=== PATIENT | male | born 1955 | race Caucasian/White ===

== ENCOUNTER 2021-04-30 06:30 | Day surgery (SDC) | payer BC ==
[~2021-04-30 06:30] MED LIST: Lactated Ringers 1,000 ML IV SCH
--- NOTE | 2021-04-30 07:04 | PCM.PREANE ---
Preanesthetic Assessment - Procedure Proposed Procedure: Colonoscopy - Anesthesia/Transfusion/Family Hx Anesthesia History: Prior Anesthesia Without Reaction Other Type of Anesthesia Reaction Comment: nausea x1 after shoulder surgery Family History of Anesthesia Reaction: No Transfusion History: No Prior Transfusion(s) - Review of Systems General: No Symptoms Pulmonary: No Symptoms Cardiovascular: No Symptoms Gastrointestinal: No Symptoms Neurological: No Symptoms Other: Reports: None - Physical Assessment NPO Status Date: 04/30/21 NPO Status Time: 08:00 Vital Signs: Last Vital Signs Temp 97.2 F 04/30/21 06:48 Pulse 57 L 04/30/21 06:48 Resp 16 04/30/21 06:48 BP 116/70 04/30/21 06:48 Pulse Ox 98 04/30/21 06:48 Height: 5 ft 10 in Weight: 69.4 kg ASA Class: 1 Mental Status: Alert & Oriented x3 Airway Class: Mallampati = 2 Dentition: Reports: Normal Dentition Thyro-Mental Finger Breadths: 3 Mouth Opening Finger Breadths: 3 ROM/Head Extension: Full Lungs: Clear to Auscultation, Normal Respiratory Effort Cardiovascular: Regular Rate, Regular Rhythm - Allergies Allergies/Adverse Reactions: Allergies Allergy/AdvReac Type Severity Reaction Status Date / Time Penicillins Allergy Hives Verified 04/24/21 08:21 - Acknowledgements Anesthesia Type Planned: General Anesthesia Pt an Appropriate Candidate for the Planned Anesthesia: Yes Alternatives and Risks of Anesthesia Discussed w Pt/Guardian: Yes Pt/Guardian Understands and Agrees with Anesthesia Plan: Yes PreAnesthesia Questionnaire HEENT History: Reports: None Cardiovascular History: Reports: None Respiratory History: Reports: None Gastrointestinal History: Reports: Other (See Below) Other Gastrointestinal History: occasional heartburn Genitourinary History: Reports: None Neurological History: Reports: None Psychiatric History: Reports: None Endocrine/Metabolic History: Reports: None Hematologic History: Reports: None Immunologic History: Reports: None Oncologic (Cancer) History: Reports: None Dermatologic History: Reports: None - Past Surgical History Head Surgeries/Procedures: Reports: None HEENT Surgical History: Reports: LASIK, Tonsillectomy Cardiovascular Surgical History: Reports: None Respiratory Surgical History: Reports: None GI Surgical History: Reports: Cholecystectomy, Colonoscopy, EGD Male Surgical History: Reports: Vasectomy Endocrine Surgical History: Reports: None Neurological Surgical History: Reports: None Musculoskeletal Surgical History: Reports: Arthroscopic Knee, Shoulder Surgery Other Musculoskeletal Surgeries/Procedures:: chris shoulder arthroscopy, knee surgery, bicep tendon repair Oncologic Surgical History: Reports: None Dermatological Surgical History: Reports: None - SUBSTANCE USE Tobacco Use Status *Q: Never Tobacco User - HOME MEDS Home Medications: Home Meds Glucosam/Chond/Collagen/Hyalur [Glucosamine Chondroitin] 1 tab PO DAILY 04/24/21 [History] - CURRENT (IN HOUSE) MEDS Current Meds: Current Medications Lactated Ringer's (Ringers, Lactated) 1,000 mls @ 125 mls/hr IV ASDIRECTED COLLINS
[2021-04-30] MEDS ORDERED: propofoL 50 ML ONE (07:16)
[2021-04-30] MEDS ORDERED: fentaNYL 100 MCG/2 ML SDV ONE (07:21)
[2021-04-30] MEDS ORDERED: ePHEDrine 50 MG/ML SDV ONE (08:07)
[2021-04-30] MEDS ORDERED: Sodium Chloride 0.9% 20 ML ONE (08:07)
--- NOTE | 2021-04-30 08:16 | PCM.OPNOTE ---
- General Post-Op/Procedure Note Date of Surgery/Procedure: 04/30/21 Operative Procedure(s): colonoscopy Findings: normal colon dictation number [id number] Pre Op Diagnosis: family history of colon cancer Post-Op Diagnosis: normal colon Primary Surgeon: Magdy Hermosillo Pathology: none Complications: None Condition: Good
--- NOTE | 2021-04-30 08:28 | PCM.POSTAN ---
POST ANESTHESIA ASSESSMENT - MENTAL STATUS Mental Status: Alert, Oriented - VITAL SIGNS Vital Signs: Last Vital Signs Temp 97.2 F 04/30/21 06:48 Pulse 57 L 04/30/21 06:48 Resp 16 04/30/21 06:48 BP 116/70 04/30/21 06:48 Pulse Ox 98 04/30/21 06:48 - RESPIRATORY Respiratory Status: Respiratory Rate WNL, Airway Patent, O2 Saturation Stable - CARDIOVASCULAR CV Status: Pulse Rate WNL, Blood Pressure Stable - GASTROINTESTINAL GI Status: No Symptoms - PAIN Pain Score: 0 - POST OP HYDRATION Hydration Status: Adequate & Stable
--- NOTE | 2021-04-30 08:34 | PCM48HPAN ---
Post Anesthesia Note - EVALUATION WITHIN 48HRS OF ANESTHETIC Vital Signs in Normal Range: Yes Patient Participated in Evaluation: Yes Respiratory Function Stable: Yes Airway Patent: Yes Cardiovascular Function Stable: Yes Hydration Status Stable: Yes Pain Control Satisfactory: Yes Nausea and Vomiting Control Satisfactory: Yes Mental Status Recovered: Yes Vital Signs: Last Vital Signs Temp 97.2 F 04/30/21 06:48 Pulse 59 L 04/30/21 08:30 Resp 13 04/30/21 08:30 BP 95/48 L 04/30/21 08:30 Pulse Ox 97 04/30/21 08:30 - COMMENTS/OBSERVATIONS Free Text/Narrative:: Pt doing well post-op. VSS. No apparent anesthetic complications. Dr. Kike Barrera
--- NOTE | 2021-05-02 01:41 | OR ---
SURGEON: RONAK KENNEY MD DATE OF PROCEDURE: 04/30/2021 PREOPERATIVE DIAGNOSIS: Family history of colon cancer. POSTOPERATIVE DIAGNOSIS: Normal colonoscopy. PRIMARY SURGEON: Ronak Kenney MD ANESTHESIA: With Anesthesiology. EXTENT OF COLONOSCOPY: To the cecum. Bowel prep was excellent. LIMITATIONS: None. REASON FOR PROCEDURE: The patient is a pleasant 65-year-old gentleman whose last colonoscopy was 7 to 8 years ago. He reports this being normal. Denied any blood in stool. Denies any changes in bowel habits. He does have a family history of colon cancer with his paternal grandmother, father, and aunt all having colon cancers. His father had colon cancer in his 40s. PROCEDURE IN DETAIL: Physical examination was performed. The major risks and benefits associated with the procedure were explained to the patient in detail. The patient verbalized understanding and agreement with the same. The patient was then connected to appropriate monitoring device and IV started. EKG, pulse, pulse oximetry, blood pressure, and capnography were monitored throughout the entire procedure. Continuous oxygen and sedation were provided by the anesthesiologist. The patient was placed in left lateral decubitus position. Sedation was began. After adequate sedation was achieved, digital rectal was performed. No rectal masses or polyps were felt. Now, a well-lubricated Olympus colonoscope was inserted into the rectum, advanced under direct visualization to the level of the cecum. Cecum was identified by both visual and anatomic landmarks. Photograph was taken of the cecal cap. The scope was then slowly withdrawn in a somewhat circular fashion looking at the color, texture, and anatomy of the mucosa from the cecum to the anal canal. The patient had an excellent bowel prep. No polyps or lesions were seen. The scope was retroflexed in the rectum, scope was completely removed, and procedure was terminated. ENDOSCOPIC DIAGNOSIS: Normal colonoscopy. RECOMMENDATIONS: Followup colonoscopy in 5 years because of his family history of colon cancer, sooner if he develops signs or symptoms such as change in bowel habits or blood in the stool. POP / DAMON /[id number]
== END 2021-04-30 08:55 | disposition home or self-care (01) ==
LOC: MW.SDS 06:30
PROVIDERS: ATTEND Surgery
DX: Z12.11 Encounter for screening for malignant neoplasm of colon (principal); Z80.0 Family history of malignant neoplasm of digestive organs; Z88.0 Allergy status to penicillin
CPT/HCPCS: 45378; J2704; J3010; J7120; 00812